=== PATIENT | female | born 1970 | race Two or more races ===

== ENCOUNTER 2016-08-02 20:36 | Emergency (ER) | payer SELFPAY ==
[2016-08-02] MEDS ORDERED: IOPAMIDOL 300 (61%) 150 ML VIAL IV ONE (20:37)
[2016-08-02] MEDS ORDERED: LACTATED RINGERS 1,000 ML ONE (21:37)
[2016-08-02] MEDS ORDERED: PROCHLORPERAZINE 5 MG/ML 2 ML VIAL ONE (21:37)
[2016-08-02 21:45] LABS: ABSOLUTE NEUTROPHIL COUNT 9.3 K/mm3 (1.8-7.7); BASO % 0.2 % (0.2-1.0); EOS # 0.1 (0.0-0.5); EOS % 0.7 % (0.9-2.9); HEMATOCRIT 29.5 % (37.0-47.0); HEMOGLOBIN 8.7 gm/l (12.0-16.0); IMM NEUT # 0.1 K/mm3 (0-0.2); IMM NEUT% 0.4 % (0-1); LYMPH # 1.1 (1.0-4.8); LYMPH % 9.8 % (15-45); MEAN CELL VOLUME 68.3 fl (81.0-99.0); MEAN CORPUSCULAR HEMOGLOBIN 20.1 pg (27.0-31.0); MEAN CORPUSCULAR HGB CONC 29.5 g/dl (33.0-37.0); MEAN PLATELET VOLUME 10.8 fl (7.4-10.4); MONO # 0.6 (0.0-0.8); MONO % 5.6 % (4-12); NEUT % 83.3 % (43-75); PLATELET COUNT 247 K/mm3 (130-400)
[2016-08-02 22:05] LABS: ALB/GLOB RATIO 1.1 (>1.0); ALBUMIN 4.3 gm/dL (3.5-5.7); CALCIUM 9.7 mg/dL (8.6-10.3); MAGNESIUM 1.9 mg/dL (1.9-2.7)
[2016-08-02 22:43] LABS: ANISOCYTOSIS 1+; PLATELET ESTIMATE NORMAL (NORMAL)
--- NOTE | 2016-08-03 07:33 | RAD ---
Exam: Two-view chest COMPARISON: 12/16/2014 and 06/13/2013 INDICATION: Weakness. FINDINGS: PA and lateral views of the chest were obtained. Cardiac silhouette is within normal limits and stable. Lungs are well-inflated. There is no focal airspace disease or pleural effusion. Calcific tendinosis is noted in the right shoulder. Patchy sclerotic densities within the left humeral diaphysis are noted but have been present since 2013 and are therefore benign. Bones of the chest wall otherwise unremarkable. IMPRESSION: No acute pulmonary process.
--- NOTE | 2016-08-03 08:08 | CT ---
Exam Type: ABD/PELVIS W/ CON Date and Time: 08/02/2016 9:18 PM Clinical information: Weakness and vomiting. Comparison: CT abdomen and pelvis 03/10/2015 Technique: Contiguous axial 4 mm images were obtained from the lung bases through the pelvis after the uneventful IV administration of 125 cc of [id number]. Sagittal and coronal reformations with high resolution lung algorithm images were also obtained at this time. CT DI: 5.9 DLP 281.1 FINDINGS: Lung base : 3 mm subpleural nodular density is noted at the left posterior base on axial image 3. Otherwise lung bases are normal. Visualized heart:There is no pericardial effusion. LIVER: within normal limits. BILE DUCTS: normal caliber. GALLBLADDER: No calcified gallstones. Normal caliber wall. PANCREAS: within normal limits. SPLEEN: within normal limits. ADRENALS: within normal limits. KIDNEYS: within normal limits. Stomach and small BOWEL: Normal caliber. Tiny amount of air is present within the distal esophagus of unknown clinical significance. Findings could relate to reflux disease. Correct clinical context and correlation is recommended. Large bowel: Air and stool are noted within the large bowel. Appendix is not clearly visualized though secondary signs of appendicitis are not seen. There is prominence of the ascending colon versus decompression. LYMPH NODES: No enlarged mesenteric lymph nodes. PERITONEUM: no ascites or free air, no fluid collection. VESSELS: within normal limits RETROPERITONEUM: within normal limits. ABDOMINAL WALL: Tiny fat-containing umbilical hernia is present. Bladder: Normal. Uterus and adnexa: Endometrial stripe complex measures upwards 2.4 cm. Findings could be normal for patient this age and correlation with patient's menstrual cycle would be recommended. Right-sided 2.5 x 1.6 cm adnexal hypodense lesion is present. Physiologic fluid is present in the pelvis. There is prominence to the uterine and ovarian vasculature of unknown clinical significance. Findings could relate to pelvic congestion syndrome in the correct clinical context and correlation would be recommended. Pelvic ultrasound could be helpful in further assessment as clinically warranted.. BONES: within normal limits. IMPRESSION: No acute inflammatory process is noted within the abdomen or pelvis. Right adnexal cyst is identified with other incidental findings as above. Close clinical and radiographic follow-up are recommended. Preliminary report was provided by [employer] at approximately 2250 hours on 08/02/2016.
== END 2016-08-02 23:17 | disposition home or self-care (01) ==
LOC: ED 20:36
DX: R11.2 Nausea with vomiting, unspecified (principal); D50.9 Iron deficiency anemia, unspecified; R53.1 Weakness; R10.9 Unspecified abdominal pain
CPT/HCPCS: 83690; 84703; 85025; 80053; 83735; 84484; 71020; 74177; 87804; 99284 ×2; 96374; 96361 ×2; 93005; J0780; J7120; Q9967